=== PATIENT | male | born 1975 | race African-American/Black ===

== ENCOUNTER 2016-03-27 20:32 | Emergency (ER) | payer OTHER ==
[~2016-03-27] VITALS: Ht 170.2 cm; Wt 82.1 kg
[2016-03-27 21:18] VITALS: BP 153/92
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
[2016-03-27] MEDS ORDERED: IBUPROFEN 800 MG TABLET. PO ONE (22:00)
--- NOTE | 2016-03-28 08:07 | RAD ---
EXAM: Right ankle, 3 views. HISTORY: Rolled ankle. COMPARISON: 04/14/2012. FINDINGS: Frontal, lateral and mortise views of the right ankle are obtained. There is no acute fracture, dislocation or subluxation. The ankle mortises intact. There is slight deformity of the medial talar dome, likely due to an osseous ridge rather than osteochondral lesion. IMPRESSION: No acute osseous finding.
== END 2016-03-27 22:02 | disposition home or self-care (01) ==
LOC: ER 20:32
DX: S93.401A Sprain of unspecified ligament of right ankle, initial encounter (principal); I10 Essential (primary) hypertension; Z88.0 Allergy status to penicillin; X58.XXXA Exposure to other specified factors, initial encounter; Y93.89 Activity, other specified; Y92.89 Other specified places as the place of occurrence of the external cause; Y99.8 Other external cause status
CPT/HCPCS: 29515; 73610; 99284-25